=== PATIENT | male | born 1980 | race Caucasian/White ===

== ENCOUNTER 2020-10-04 23:34 | Emergency (ER) | payer SELFPAY ==
[~2020-10-04] VITALS: Ht 172.7 cm; Wt 103.9 kg
[2020-10-04 23:47] VITALS: Ht 172.7 cm; Wt 103.9 kg
[2020-10-05 02:58] LABS: UA SPECIFIC GRAVITY >=1.030 (1.005-1.035); microscopic required? YES; urine erythrocyte TRACE (NEGATIVE)
[2020-10-05 03:00] LABS: BASOPHIL % 0.3 % (0.2-1.5); PLATELET COUNT 281 x10^3mcL (152-348); RED CELL DISTRIBUTION WIDTH 14.3 % (12.1-16.2)
[2020-10-05 04:06] LABS: CALCIUM 9.2 mg/dL (8.5-10.1); CARBON DIOXIDE 13.5 mmol/L (21-32); CHLORIDE SERUM 98 mmol/L (98-107); CREATININE SERUM 1.1 mg/dL (0.7-1.3); GFR1 > 60 mL/min; GLUCOSE SERUM 108 mg/dL (74-106); POTASSIUM SERUM 4.6 mmol/L (3.5-5.1); SODIUM SERUM 137 mmol/L (136-145)
[2020-10-05 04:15] LABS: ALKALINE PHOSPHATASE 85 U/L (46-116); ALT/SGPT 19 U/L (16-63); AST/SGOT 21 U/L (15-37); BILIRUBIN TOTAL 0.6 mg/dL (0.20-1.00)
[2020-10-05 04:19] LABS: T4(THYROXINE) 8.9 ug/dL (4.7-13.3)
[2020-10-05 05:50] VITALS: BP 130/70
== END 2020-10-05 05:50 | disposition home or self-care (01) ==
LOC: ED 23:34
PROVIDERS: Emergency Medicine
DX: E86.0 Dehydration (principal); R53.1 Weakness; R53.83 Other fatigue